=== PATIENT | female | born 1975 | race Two or more races ===

== ENCOUNTER 2024-10-10 23:27 | Emergency (ER) | payer OTHER ==
[~2024-10-10] VITALS: Ht 157.5 cm; Wt 75.7 kg
[2024-10-10] MEDS ORDERED: VITAMIN D3100 GM MC (23:59)
[2024-10-11] MEDS ORDERED: CLINDAMYCIN PHOSPHATE 150 MG/ML (600mg) IM STA (04:12)
[2024-10-11] MEDS ORDERED: CLINDAMYCIN PHOSPHATE 150 MG/ML (300mg) ONE (04:20)
== END 2024-10-11 04:32 | disposition home or self-care (01) ==
LOC: ER 23:29
DX: J03.80 Acute tonsillitis due to other specified organisms (principal); Z88.8 Allergy status to other drugs, medicaments and biological substances